=== PATIENT | female | born 1975 | race African-American/Black ===

== ENCOUNTER 2016-08-14 14:00 | Emergency (ER) | payer OTHER ==
[2016-08-14 14:55] LABS: URINE SOURCE CLEAN CATCH
[2016-08-14 15:31] LABS: BILIRUBIN URINE NEGATIVE (NEGATIVE); BLOOD URINE NEGATIVE (NEGATIVE); CLARITY CLEAR (CLEAR); COLOR YELLOW; GLUCOSE URINE NEGATIVE (NEGATIVE); LEUKOCYTES URINE 1+ (NEGATIVE); NITRITE URINE NEGATIVE (NEGATIVE); PH URINE 6.5; PROTEIN URINE NEGATIVE (NEGATIVE); UROBILINOGEN URINE NORMAL
[2016-08-14 15:33] LABS: URINE CAST NONE SEEN /LPF; URINE CRYSTAL NONE SEEN /HPF; URINE CULTURE PL NEEDED? YES; URINE EPITHELIAL CELLS <10 /HPF (<10)
--- NOTE | 2016-08-14 15:38 | PROVIDER DOCUMENTATION ---
HPI-Female /OB/Breast <Lui Sanchezregino Soto - Last Filed: 08/14/16 15:37> - General Source: reports: patient - History of Present Illness-Female /OB Location of complaint: reports: suprapubic Radiation: reports: back Quality of Pain: reports: aching Severity in ED: reports: mild Onset/Duration: reports: 2 days ago Timing: reports: still present, intermittent Context/Activities at Onset: reports: light activity Vaginal Symptoms: reports: no symptoms Vaginal Bleeding Amount: None Urinary Symptoms: reports: frequency Related Symptoms: reports: no symptoms Leakage of Fluid: none Sexual intercourse history: reports: Single Partner Contraception: reports: none Modifying Factors: improves with: nothing Associated Symptoms: reports: back/neck pain (back). denies: anxiety, chest pain, constipation, cough, diaphoresis, diarrhea, dizziness, fatigue, fever/ chills, joint pain, loss of appetite, malaise, muscle aches, nausea, rash, seizure, sensory/motor loss, swelling/mass in abdomen, syncope, vomiting, weakness, trouble walking Similar Symptoms Previously?: Yes Recently seen or treated by another doctor?: No <Gracy Hatfield - Last Filed: 08/14/16 15:47> - General Chief Complaint: UTI Symptoms Stated Complaint: UTI SX Time Seen by Provider: 08/14/16 15:14 Allergies/Adverse Reactions: Patient Allergies Allergy/AdvReac Type Severity Reaction Status Date / Time No Known Allergies Allergy Verified 05/02/16 08:49 Home Medications: Home Medication List Medication Instructions Recorded Confirmed Last Taken Type Ferrous Sulfate 325 mg PO DAILY 05/02/16 05/04/16 05/04/16 07:30 History 325 Hydrochlorothiazide 25 mg PO DAILY 05/02/16 05/04/16 05/02/16 History 25 Quinapril [Accupril] 40 mg PO DAILY 05/02/16 05/04/16 05/04/16 07:30 History 40 Hydrocodone/Acetaminophen [[place] 1 - 2 each PO Q4H PRN PRN #60 05/04/16 Unknown Rx 10-325 Tablet] tablet Ibuprofen [Motrin] 800 mg PO Q8H PRN PRN #20 tablet 08/14/16 Unknown Rx Phenazopyridine HCl [Pyridium] 100 mg PO TID #6 tablet 08/14/16 Unknown Rx Sulfamethoxazole/Trimethoprim 1 each PO BID #10 tablet 08/14/16 Unknown Rx [Bactrim Ds Tablet] - History of Present Illness-Female /OB Nature of Presenting Problem: Pt is 41 y/o F presents to the ED with UTI like symptoms. Pt states frequent urination. Pt states symptoms started 2 days ago. Pt denies dysuria. Pt states hx of UTIs. (Gracy Hatfield) Review of Systems - Adult - REVIEW OF SYSTEMS - ADULT Constitutional: denies: chills, fever Eyes: denies: blurred vision, double vision Ears, Nose, Mouth & Throat: denies: ear pain, nose pain, throat pain Cardiovascular: denies: chest pain, heart murmur, irregular heart rate Respiratory: denies: cough, shortness of breath, wheezing Gastrointestinal: reports: abdominal pain (suprapubic). denies: diarrhea, nausea, vomiting Genitourinary: reports: frequency. denies: dysuria, hematuria Musculoskeletal: reports: back pain. denies: joint pain, neck pain Integumentary: denies: hives, itching Neurological: denies: dizziness/vertigo, headache/migraines Psychiatric: reports: no symptoms reported Endocrine: reports: no symptoms reported Hematologic/Lymphatic: reports: no symptoms reported Allergic/Immunologic: reports: no symptoms reported All Other Systems: Reviewed and Negative <Gracy Hatfield - Last Filed: 08/14/16 15:47> Past History - Adult - PAST MEDICAL HISTORY-ADULT Review of Records: reports: Nursing Assessment Review, Medications Reviewed, Social history reviewed & non-contributory. Major Childhood Illnesses: reports: denies history Cardiovascular: reports: HTN Respiratory: reports: denies history Gastrointestinal: reports: denies history Obstetrical/Gynecological: reports: denies history Genitourinary: reports: denies history Musculoskeletal: reports: denies history Neurological: reports: denies history Endocrine/Immune: reports: denies history Other Conditions: reports: denies history - PRIOR SURGERIES/PROCEDURES Surgical/Procedure History: reports: hysterectomy - IMMUNIZATION STATUS Childhood Immunizations: See Nurse Assessment Flu Vaccine: See Nurse Assessment - FAMILY HISTORY Family History: reviewed, not pertinent - SOCIAL HISTORY Smoking: denies Substance Use: denies Living Situation: family <Gracy Hatfield - Last Filed: 08/14/16 15:47> Physical Exam-General - PHYSICAL EXAM-ADULT Initial Vital Signs Reviewed: Yes - CONSTITUTIONAL General Appearance: appears well, alert, no apparent distress - EYES Eyes: PERRL/EOMI, pink conjunctivae, fundi clear, no AV nicking - HEAD, EARS, NOSE, MOUTH & THROAT HENMT: normocephalic/atraumatic, moist mucous membranes, normal ENT inspection, TMs normal, pharynx normal - NECK Neck: non-tender, full range of motion, supple, normal inspection - RESPIRATORY Respiratory: chest non-tender, lungs clear, normal breath sounds, no pleuratic chest pain, no respiratory distress, no accessory muscle use - CARDIOVASCULAR Cardiovascular: normal peripheral pulses, regular rate, rhythm, no edema, no gallop, no JVD, no murmur - GASTROINTESTINAL (ABDOMEN) Abdominal Exam: normal bowel sounds, non tender, soft, no organomegaly, no pulsatile mass - LYMPHATIC Lymphatic: no adenopathy - MUSCULOSKELETAL Back Exam: normal inspection, no CVA tenderness, no vertebral tenderness Extremity: normal range of motion, non-tender, normal gait, normal inspection, no pedal edema, no calf tenderness, normal capillary refill - SKIN Integumentary: normal color, normal turgor, warm/dry - NEUROLOGIC 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, grossly normal, no motor/sensory deficits - PSYCHIATRIC Psych/Mental Status: normal mood/affect, oriented x 3 <Gracy Hatfield - Last Filed: 08/14/16 15:47> Progress <Fuad Sanchez - Last Filed: 08/14/16 15:37> <Gracy Hatfield - Last Filed: 08/14/16 15:47> - PLAN OF CARE/RESULTS Progress/Plan/Lab Results: Laboratory Tests 08/14/16 14:42 Urine Source CLEAN CATCH Urine Color YELLOW Urine Clarity CLEAR Urine pH 6.5 Ur Specific [place] 1.010 Urine Protein NEGATIVE Urine Ketones NEGATIVE Urine Blood NEGATIVE Urine Nitrite NEGATIVE Urine Bilirubin NEGATIVE Urine Urobilinogen NORMAL Urine Microscopic RBC Not Reportable Urine WBC 1+ A Urine Microscopic WBC 10-20 A Ur Epithelial Cells <10 Urine Crystals NONE SEEN Urine Bacteria 1+ Urine Casts NONE SEEN Urine Yeast NONE SEEN Urine Glucose NEGATIVE Orders Category Date Time Status ED: Urine Bedside ORDERED Care 08/14/16 14:[address] W/POSS RFLX CULT [URINALYSIS] Stat Lab 08/14/16 14:42 Completed URINE CULTURE [RM] Routine Lab 08/14/16 15:33 Ordered Vital Signs - 24 hr 08/14/16 14:11 Temperature 98.1 F Pulse Rate 94 H Respiratory 18 Rate Blood Pressure 163/100 O2 Sat by Pulse 100 Oximetry (Gracy Hatfield) Departure - Departure Time of Disposition Order: 15:37 Certified Medical Emergency: Emergent <Fuad Sanchez - Last Filed: 08/14/16 15:37> - Departure Time of Disposition Order: 15:47 Certified Medical Emergency: Emergent <Gracy Hatfield - Last Filed: 08/14/16 15:47> - Departure DIAGNOSIS: Acute UTI Disposition: HOME 01 Condition: Good Additional Instructions: Take medication as prescribed. Drink plenty of fluids. Follow up with your primary care provider. ED Follow Up Instructions: You have been treated by a care provider in the Emergency Department. These instructions are being provided to you so you can have an understanding of how to care for yourself upon discharge. Upon discharge from the Emergency Department, you are responsible for making arrangements for follow-up care by a physician of your choice. Take all prescribed medications as directed. Return to the Emergency Department immediately for any new or worsening symptoms. You may call the Physician Referral phone number at [phone] to obtain a list of Physicians who are taking new patients. Prescriptions: Sulfamethoxazole/Trimethoprim [Bactrim Ds Tablet] 1 each PO BID #10 tablet Ibuprofen [Motrin] 800 mg PO Q8H PRN PRN #20 tablet PRN Reason: inflammation Phenazopyridine HCl [Pyridium] 100 mg PO TID #6 tablet Referrals: Hayde Junior CRNP [Primary Care Provider] - Forms: Return to School/Parent Work Instructions: Ibuprofen tablets and capsules, Phenazopyridine tablets, Urinary Tract Infection, [id number], Sulfamethoxazole; Trimethoprim, [id number] tablets Attestation - Physician/ GLORIA Attestation Patient care was provided by Advanced Practice Provider:: Yes Advanced Practice Provider:: Fuad Sanchez Advanced Practice Provider documentation review:: The Mid-level provider documentation, treatment plan and medical decision making was reviewed by the physician who agrees with all treatment and medical decision making by the MLP. <Fuad Sanchez - Last Filed: 08/14/16 15:37> - Scribe Verification/Attestation Scribe:: Gracy Hatfield Acting as Scribe for:: Fuad Sanchez Scribe documention review:: This chart was documented by a scribe and accurately reflects the service the provider performed and the decisions made by the provider. <Gracy Hatfield - Last Filed: 08/14/16 15:47> Physician Attestation
[2016-08-14 15:54] VITALS: BP 138/92
== END 2016-08-14 15:55 | disposition home or self-care (01) ==
LOC: P.ED 14:00
DX: N39.0 Urinary tract infection, site not specified (principal); R35.0 Frequency of micturition; M54.9 Dorsalgia, unspecified; R10.30 Lower abdominal pain, unspecified; I10 Essential (primary) hypertension; Z79.899 Other long term (current) drug therapy
CPT/HCPCS: 81001; 81025; 87088; 99283